=== PATIENT | male | born 1970 | race Caucasian/White ===

== ENCOUNTER 2017-06-07 07:25 | Inpatient (IN) | payer BC, MEDICARE ==
[~2017-06-07] VITALS: Ht 170.2 cm; Wt 127.7 kg
[2017-06-07] MEDS ORDERED: BOTO200I IJ (07:35)
[2017-06-07] MEDS ORDERED: DOXA1TAB72 PO (07:35)
[2017-06-07] MEDS ORDERED: ATEN50TA2 PO (07:35)
[2017-06-07] MEDS ORDERED: NAPR500T3 PO (07:35)
[2017-06-07] MEDS ORDERED: SIMV80TA PO (07:35)
[2017-06-07] MEDS ORDERED: BUPR15TA PO (07:35)
[2017-06-07] MEDS ORDERED: SERT50TA PO (07:35)
[2017-06-07] MEDS ORDERED: PRIL20CA9 PO (07:35)
[2017-06-07] MEDS ORDERED: SILD25TA GT (07:35)
[2017-06-07 08:33] LABS: MEAN CORPUSCULAR HEMOGLOBIN 31.4 pg (27.0-33.0); MEAN CORPUSCULAR HGB CONC 35.4 g/dl (32.0-36.5); MEAN CORPUSCULAR VOLUME 88.7 fl (80.0-96.0); WHITE BLOOD COUNT 5.7 K/mm3 (4.0-10.0)
[2017-06-07 08:44] LABS: METHADONE URINE NEGATIVE (NEGATIVE)
[2017-06-07 08:55] LABS: ALBUMIN/GLOBULIN RATIO 1.43 (1.00-1.93); ALKALINE PHOSPHATASE 116 U/L (45-117); ALT/SGPT 26 U/L (12-78); ANION GAP 8 MEQ/L (8-16); AST/SGOT 14 U/L (15-37); BILIRUBIN,DIRECT 0.2 MG/DL (0.0-0.2); BILIRUBIN,TOTAL 0.6 MG/DL (0.2-1.0); BLOOD UREA NITROGEN 11 MG/DL (7-18); CALCIUM LEVEL 8.5 MG/DL (8.5-10.1); CARBON DIOXIDE LEVEL 25 MEQ/L (21-32); CHLORIDE LEVEL 106 MEQ/L (98-107); CREATININE FOR GFR 0.99 MG/DL (0.70-1.30); GLOMERULAR FILTRATION RATE > 60.0 (>60); GLUCOSE, FASTING 103 MG/DL (70-105); POTASSIUM SERUM 3.6 MEQ/L (3.5-5.1); SODIUM LEVEL 139 MEQ/L (136-145); TOTAL PROTEIN 6.8 GM/DL (6.4-8.2)
[2017-06-07] MEDS ORDERED: VIAG100T PO (10:14)
[2017-06-07] MEDS ORDERED: BUPR75TA5 PO (10:14)
[2017-06-07] MEDS ORDERED: CYCL10TA PO (10:19)
[2017-06-07] MEDS ORDERED: MOM 30ML SUSPENSION UDC PO PRN (13:30)
[2017-06-07] MEDS ORDERED: ACETAMINOPHEN TAB 650MG DOSE (2X325MG) PO PRN (13:30)
[2017-06-07] MEDS ORDERED: MAALOX 30 ML SUSP *UDC PO PRN (13:30)
[2017-06-07] MEDS ORDERED: traZODone 50 MG TAB PO PRN (13:30)
[2017-06-07 18:00] VITALS: BP 154/79
[2017-06-07] MEDS: buPROPion 75 MG TAB PO SCH (20:51)
[2017-06-07] MEDS: SIMVASTATIN 40 MG TAB PO SCH (20:51)
[2017-06-07] MEDS: DOXAZOSIN MESYLATE 4 MG TAB PO SCH (20:53)
[2017-06-08 06:00] VITALS: BP 119/67
[2017-06-08] MEDS: OMEPRAZOLE 20 MG CAP PO SCH (08:22)
[2017-06-08] MEDS: NAPROXEN 250 MG TAB PO PRN (08:23)
[2017-06-08] MEDS: SERTRALINE 100 MG TAB PO SCH (08:23)
[2017-06-08] MEDS: ATENOLOL 50 MG TAB PO SCH (08:23)
[2017-06-08] MEDS: buPROPion 75 MG TAB PO SCH ×2 (08:23→19:57)
[2017-06-08 08:43] VITALS: BP_SYST 137; BP_SYST 153; BP_DIAS 88; BP_DIAS 90
[2017-06-08 08:44] VITALS: BP 147/86
[2017-06-08] MEDS ORDERED: buPROPion 75 MG TAB PO SCH (09:00)
[2017-06-08] MEDS ORDERED: SERTRALINE HCL 50 MG TAB PO SCH (09:00)
[2017-06-08 09:46] VITALS: BP 142/93
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
[2017-06-08 18:00] VITALS: BP 144/77
[2017-06-08] MEDS: SIMVASTATIN 40 MG TAB PO SCH (19:57)
[2017-06-08] MEDS: DOXAZOSIN MESYLATE 4 MG TAB PO SCH (19:58)
--- NOTE | 2017-06-09 01:22 | HPE ---
DATE OF ADMISSION: 06/07/2017 HISTORY OF PRESENT ILLNESS: Please refer to psychiatric history and evaluation for further details on this admission. This examination and history is intended for medical issues, which may need treatment, followup or consult on this 47-year-old male. ALLERGIES: No known allergies. PRIMARY CARE PROVIDER: [facility]. SOCIAL HISTORY: He is . Ethyl alcohol (EtOH): Drinks once a month. Smokes none. Recreational drug use: Marijuana. PAST MEDICAL HISTORY: 1. Hypertension. 2. Gastroesophageal reflux disease (GERD). 3. Irritable bowel syndrome (IBS). 4. Migraines. PAST SURGICAL HISTORY: Negative. HOME MEDICATIONS: - atenolol 50 mg by mouth daily - bupropion 150 mg by mouth daily - cyclobenzaprine 10 mg by mouth three times a day as needed - doxazosin 4 mg by mouth nightly - naproxen 500 mg by mouth as needed for back pain - omeprazole 20 mg by mouth daily - sertraline 50 mg by mouth daily - Viagra 100 mg by mouth as needed - simvastatin 80 mg by mouth nightly - Botox injections every 3 months LABORATORY STUDIES: WBC 5.7, hemoglobin 14.2, hematocrit 41.2, platelets 137. Electrolytes were normal. BUN and creatinine were 11 and 0.99. Urine was positive for cannabinoids. REVIEW OF SYSTEMS: 10-system review was done. He had no current complaints. History of migraines was stable. History of GERD was stable. IBS, he had no current diarrhea. No abdominal pain. OBJECTIVE: 47-year-old cooperative male in no acute distress. Height 67 inches, weight 124.5 kg, body mass index (BMI) 43. Blood pressure 123/66, pulse 64, respirations 18, temperature 97.8. Patient is alert and oriented times three. Pupils equal and react to light. Extraocular muscles intact. Cornea and sclerae clear. Conjunctivae were normal. No facial asymmetry. Pharynx, tongue and gums pink and moist. Tongue is midline. Neck is supple without lymphadenopathy. No thyromegaly, no goiter. Carotid 2+ without bruit. Chest clear to auscultation without wheeze or retraction. Heart is regular. Abdomen is benign. Bowel sounds positive. Genitourinary/rectal: Not done. Extremities: No cyanosis, clubbing or edema. Peripheral pulses equal and palpable bilaterally. Skin is warm and dry. IMPRESSION/PLAN: 1. Hypertension, stable. 2. Gastroesophageal reflux disease (GERD), stable. 3. Irritable bowel syndrome (IBS), stable. 4. Migraines, stable. Continue current medications as prescribed by the clinic. 5. Psychiatric plan per psychiatry.
--- NOTE | 2017-06-09 02:38 | IPN ---
DATE OF SERVICE: 06/08/2017 The patient today states that he is feeling very depressed and hopeless and helpless. He did say that he slept better. He is denying suicidal ideations. MENTAL STATUS EXAMINATION: He is alert and oriented times three. Eye contact is fairly good. Psychomotor activity is decreased. He is verbally spontaneous. There is no formal thought disorder noted. Patient's mood is depressed. Affect is full range and appropriate. He is not psychotic, suicidal, homicidal. Concentration and memory good. Insight and judgment is fair. DIAGNOSES: 1. Major depressive disorder. 2. Posttraumatic stress disorder. 3. Panic disorder. TREATMENT PLAN: At this point, the patient continues to be very depressed. We have just increased his Zoloft and his Wellbutrin and we will await further clinical response from this medication.
[2017-06-09 06:47] VITALS: BP 141/79
[2017-06-09] MEDS: buPROPion 75 MG TAB PO SCH ×2 (08:15→20:39)
[2017-06-09] MEDS: ATENOLOL 50 MG TAB PO SCH (08:15)
[2017-06-09] MEDS: SERTRALINE 100 MG TAB PO SCH (08:15)
[2017-06-09] MEDS: OMEPRAZOLE 20 MG CAP PO SCH (08:15)
[2017-06-09] MEDS ORDERED: ALBUTEROL 90 MCG/ACT 8GM HFA INHALER INH PRN (10:00)
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
[2017-06-09] MEDS ORDERED: hydrOXYzine 25 MG TAB PO PRN (13:30)
[2017-06-09 18:00] VITALS: BP 136/76
[2017-06-09] MEDS: SIMVASTATIN 40 MG TAB PO SCH (20:39)
[2017-06-09] MEDS: DOXAZOSIN MESYLATE 4 MG TAB PO SCH (20:40)
[2017-06-10 06:32] VITALS: BP 122/88
[2017-06-10] MEDS: ATENOLOL 50 MG TAB PO SCH (08:21)
[2017-06-10] MEDS: SERTRALINE 100 MG TAB PO SCH (08:21)
[2017-06-10] MEDS: OMEPRAZOLE 20 MG CAP PO SCH (08:21)
[2017-06-10] MEDS: buPROPion 75 MG TAB PO SCH ×2 (08:22→12:01)
[2017-06-10] MEDS: NAPROXEN 250 MG TAB PO PRN ×2 (08:22→18:53)
--- NOTE | 2017-06-10 13:23 | MHIPNPDOC ---
[facility] Progress Note Progress Note DATE OF SERVICE: 06/10/17 HISTORY: Day 4 of admission for worsening depression and SI. VITAL SIGNS: See below. NEW TEST RESULTS: na. CURRENT MEDICATIONS: See below. MENTAL STATUS EXAMINATION: Patient is a 47-year old male, who is wearing a T-Shirt and PJ bottoms, heavy set build, good eye contact, drawing on a piece of paper. Speech: Is clear and spontaneous. Language skills are good. Thought processes including: goal directed. Thought content: linear. Abstract reasoning, and computation: good. Description of associations: good. Description of abnormal or psychotic thoughts: no psychotic symptoms or thoughts expressed or observed. Pt reports SI has stopped. Judgment: good Insight: good, Orientation: well oriented in all spheres. Recent and remote memory: intact Attention span and concentration: good Fund of knowledge: full. Mood: anxious. Affect: anxious DIAGNOSES: Major depressive disorder, recurrent, severe without psychotic symptoms. Posttraumatic stress disorder. Panic disorder. Cannabis use/dependence ASSESSMENT:met with pt for 1:1, he reports poor sleep last night. Upon investigation his medication, his bupropion is scheduled in a.m. and hs. Of course he is having difficulty with sleep when dosing Wellbutrin that late in the day. Med changed to 0900 and Noon. Pt is satisfied with this explanation for insomnia. Pt is using strategies to manage his stress when the unit is noisy or crowded. He will find a quiet place to relax. He uses deep breathing. He attended meditation group today to learn more skills in that area. He is social at times and at other times keeps to self. He is not a behavior challenge on the unit. He seems to get along well with peers. Several patients have a negative impact on him and when they are present he has to remove himself to keep control. Олег is attending to hygiene, he eats at all meals. He attends groups. He is taking medication as prescribed. He has not made use of the Vistaril prn. MANAGEMENT PLAN: Will continue to monitor for sleep/insomnia. continue close observation and attendance at groups. TIME SPENT: 25 minutes. Vital Signs Vital Signs Date Time Temp Pulse Resp B/P (MAP) Pulse Ox O2 Delivery O2 Flow Rate FiO2 06/10/17 08:21 88 124/76 06/10/17 06:32 97.2 18 06/08/17 08:43 99 Room Air Current Medications Current Medications Acetaminophen (Tylenol Tab) 650 mg Q6HP PRN PO HEADACHE or DISCOMFORT Last administered on 06/08/17 15:12; Start 06/07/17 at 13:30; Stop 07/07/17 at 13:29 Al Hydrox/Mg Hydrox/Simethicone (Mylanta) 30 ml Q4HP PRN PO HEARTBURN/ INDIGESTION; Start 06/07/17 at 13:30; Stop 07/07/17 at 13:29 Albuterol Sulfate (Proventil, Ventolin Hfa) 2 puff Q4HP PRN INH SHORTNESS OF BREATH Last administered on 06/10/17 09:08; Start 06/09/17 at 10:00; Stop at 09:59 Atenolol (Tenormin) 50 mg DAILY PO Last administered on 06/10/17 08:21; Start 06/08/17 at 09:00; Stop 07/08/17 at 08:59 Bupropion HCl (Wellbutrin) 150 mg BID PO Last administered on 06/10/17 08:22; Start 06/07/17 at 21:00; Stop 06/10/17 at 09:19; Status DC Bupropion HCl (Wellbutrin) 150 mg BID@0900,1200 PO Last administered on 12:01; Start 06/10/17 at 12:00; Stop 07/10/17 at 11:59 Bupropion HCl (Wellbutrin) 150 mg DAILY PO ; Start 06/08/17 at 09:00; Stop at 09:00; Status DC Doxazosin Mesylate (Cardura) 4 mg QHS PO Last administered on 06/09/17 20:40; Start 06/07/17 at 21:00; Stop 07/07/17 at 20:59 Home Med (Med Rec Complete!) ASDIRECTED XX ; Start 06/07/17 at 10:30; Stop at 10:30; Status DC Hydroxyzine HCl (Atarax) 25 mg Q6HP PRN PO ANXIETY; Start 06/09/17 at 13:30; Stop 07/09/17 at 13:29 Magnesium Hydroxide (Milk Of Magnesia) 30 ml DAILYPRN PRN PO CONSTIPATION; Start 06/07/17 at 13:30; Stop 07/07/17 at 13:29 Naproxen (Naprosyn) 500 mg BID PRN PO Pain Last administered on 06/10/17 08:22 ; Start 06/07/17 at 13:45; Stop 07/07/17 at 13:44 Omeprazole (PriLOSEC) 20 mg DAILY PO Last administered on 06/10/17 08:21; Start 06/08/17 at 09:00; Stop 07/08/17 at 08:59 Sertraline HCl (Zoloft) 50 mg DAILY PO ; Start 06/08/17 at 09:00; Stop 06/08/17 at 09:00; Status DC Sertraline HCl (Zoloft) 100 mg QAM PO Last administered on 06/10/17 08:21; Start 06/08/17 at 09:00; Stop 07/08/17 at 08:59 Simvastatin (Zocor) 80 mg QHS PO Last administered on 06/09/17 20:39; Start at 21:00; Stop 07/07/17 at 20:59 Trazodone HCl (Desyrel) 50 mg QHSP PRN PO INSOMNIA; Start 06/07/17 at 13:30; Stop 07/07/17 at 13:29 Allergies Coded Allergies: No Known Allergies (Unverified , 06/07/17) Santa Avelar Jun 10, 2017 13:23
[2017-06-10 18:00] VITALS: BP 140/72
[2017-06-10] MEDS: SIMVASTATIN 40 MG TAB PO SCH (20:14)
[2017-06-10] MEDS: DOXAZOSIN MESYLATE 4 MG TAB PO SCH (20:14)
[2017-06-11 07:00] VITALS: BP 133/66
[2017-06-11] MEDS: buPROPion 75 MG TAB PO SCH (08:26)
[2017-06-11] MEDS: ATENOLOL 50 MG TAB PO SCH (08:26)
[2017-06-11] MEDS: OMEPRAZOLE 20 MG CAP PO SCH (08:27)
[2017-06-11] MEDS: SERTRALINE 100 MG TAB PO SCH (08:27)
[2017-06-11] MEDS ORDERED: buPROPion 75 MG TAB PO ONE (13:15)
--- NOTE | 2017-06-11 13:32 | MHIPNPDOC ---
[facility] Progress Note Progress Note DATE OF SERVICE: 06/11/17 HISTORY: Day 5 of admission for worsening depression and SI. VITAL SIGNS: See below. NEW TEST RESULTS: na. CURRENT MEDICATIONS: See below. MENTAL STATUS EXAMINATION: Patient is a 47-year old male, who is wearing a T-Shirt and PJ bottoms, heavy set build, good eye contact, sitting at a table with a group of peers. Speech: Is clear and spontaneous. Language skills are good. Thought processes including: goal directed. Thought content: linear. Abstract reasoning, and computation: good. Description of associations: good. Description of abnormal or psychotic thoughts: no psychotic symptoms or thoughts expressed or observed. Pt reports SI has stopped. Judgment: good Insight: good, Orientation: well oriented in all spheres. Recent and remote memory: intact Attention span and concentration: good Fund of knowledge: full. Mood: anxious. Affect: anxious DIAGNOSES: Major depressive disorder, recurrent, severe without psychotic symptoms. Posttraumatic stress disorder. Panic disorder. Cannabis dependence ASSESSMENT: Олег reports an adequate night of sleeping but does not like the feeling he has in the a.m. after a night of trazodone. He also expressed he feels the mid day dose of Wellbutrin is "too strong". Vocational Rehabilitation Consultant will lower dose to 75 mg at noon. So he will receive 75 mg - 2 tabs in a.m. and 1 tab po at noon. He is satisfied with this adjustment. Олег continues to attend groups. he is responding appropriately to stress. he states he has had moments of true happiness while here and he is also able to feel other motions again. this feels good to him. MANAGEMENT PLAN: Family meeting scheduled by [facility] for tomorrow at 3 p.m. Son is attending, GF was called but no answer and mailbox full. Will plan to discharge following the meeting if pt feels comfortable and safe. Follow up will be handled by the [facility] for med mgt and therapy. Pt will need to obtain his therapy services from the same agency doing the prescribing for him. TIME SPENT: 15 minutes. Vital Signs Vital Signs Date Time Temp Pulse Resp B/P (MAP) Pulse Ox O2 Delivery O2 Flow Rate FiO2 06/11/17 08:26 65 144/82 06/11/17 07:00 98.1 18 06/08/17 08:43 99 Room Air Current Medications Current Medications Acetaminophen (Tylenol Tab) 650 mg Q6HP PRN PO HEADACHE or DISCOMFORT Last administered on 06/08/17 15:12; Start 06/07/17 at 13:30; Stop 07/07/17 at 13:29 Al Hydrox/Mg Hydrox/Simethicone (Mylanta) 30 ml Q4HP PRN PO HEARTBURN/ INDIGESTION; Start 06/07/17 at 13:30; Stop 07/07/17 at 13:29 Albuterol Sulfate (Proventil, Ventolin Hfa) 2 puff Q4HP PRN INH SHORTNESS OF BREATH Last administered on 06/10/17 09:08; Start 06/09/17 at 10:00; Stop at 09:59 Atenolol (Tenormin) 50 mg DAILY PO Last administered on 06/11/17 08:26; Start 06/08/17 at 09:00; Stop 07/08/17 at 08:59 Bupropion HCl (Wellbutrin) 75 mg DAILY@1200 PO ; Start 06/12/17 at 12:00; Stop 07/12/17 at 11:59 Bupropion HCl (Wellbutrin) 150 mg BID PO Last administered on 06/10/17 08:22; Start 06/07/17 at 21:00; Stop 06/10/17 at 09:19; Status DC Bupropion HCl (Wellbutrin) 150 mg BID@0900,1200 PO Last administered on 08:26; Start 06/10/17 at 12:00; Stop 06/11/17 at 13:09; Status DC Bupropion HCl (Wellbutrin) 150 mg DAILY PO ; Start 06/12/17 at 09:00; Stop 07/12 at 08:59 Bupropion HCl (Wellbutrin) 150 mg DAILY PO ; Start 06/08/17 at 09:00; Stop at 09:00; Status DC Doxazosin Mesylate (Cardura) 4 mg QHS PO Last administered on 06/10/17 20:14; Start 06/07/17 at 21:00; Stop 07/07/17 at 20:59 Home Med (Med Rec Complete!) ASDIRECTED XX ; Start 06/07/17 at 10:30; Stop at 10:30; Status DC Hydroxyzine HCl (Atarax) 25 mg Q6HP PRN PO ANXIETY; Start 06/09/17 at 13:30; Stop 07/09/17 at 13:29 Magnesium Hydroxide (Milk Of Magnesia) 30 ml DAILYPRN PRN PO CONSTIPATION; Start 06/07/17 at 13:30; Stop 07/07/17 at 13:29 Naproxen (Naprosyn) 500 mg BID PRN PO Pain Last administered on 06/10/17 18:53 ; Start 06/07/17 at 13:45; Stop 07/07/17 at 13:44 Omeprazole (PriLOSEC) 20 mg DAILY PO Last administered on 06/11/17 08:27; Start 06/08/17 at 09:00; Stop 07/08/17 at 08:59 Sertraline HCl (Zoloft) 50 mg DAILY PO ; Start 06/08/17 at 09:00; Stop 06/08/17 at 09:00; Status DC Sertraline HCl (Zoloft) 100 mg QAM PO Last administered on 06/11/17 08:27; Start 06/08/17 at 09:00; Stop 07/08/17 at 08:59 Simvastatin (Zocor) 80 mg QHS PO Last administered on 06/10/17 20:14; Start at 21:00; Stop 07/07/17 at 20:59 Trazodone HCl (Desyrel) 50 mg QHSP PRN PO INSOMNIA Last administered on 22:42; Start 06/07/17 at 13:30; Stop 07/07/17 at 13:29 Allergies Coded Allergies: No Known Allergies (Unverified , 06/07/17) Santa Avelar Jun 11, 2017 13:32
[2017-06-11 18:00] VITALS: BP 141/64
[2017-06-11] MEDS: NAPROXEN 250 MG TAB PO PRN (19:42)
[2017-06-11] MEDS: SIMVASTATIN 40 MG TAB PO SCH (20:56)
[2017-06-11] MEDS: DOXAZOSIN MESYLATE 4 MG TAB PO SCH (20:56)
[2017-06-12 06:58] VITALS: BP 126/67
[2017-06-12] MEDS: OMEPRAZOLE 20 MG CAP PO SCH (08:05)
[2017-06-12] MEDS: SERTRALINE 100 MG TAB PO SCH (08:05)
[2017-06-12 08:06] VITALS: BP 126/67
[2017-06-12] MEDS: ATENOLOL 50 MG TAB PO SCH (08:06)
[2017-06-12] MEDS: NAPROXEN 250 MG TAB PO PRN (08:08)
[2017-06-12] MEDS ORDERED: buPROPion 75 MG TAB PO SCH ×2 (09:00→12:00)
[2017-06-12] MEDS ORDERED: SERT-138 PO (10:59)
[2017-06-12] MEDS ORDERED: TRAZO50TA PO (12:29)
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
== END 2017-06-12 14:20 | disposition home or self-care (01) | DRG 885 ==
LOC: M ED 07:25 → M PSY 11:34
PROVIDERS: ADMIT Psychiatry & Neurology Psychiatry; ATTEND Psychiatry & Neurology Psychiatry
DX: F33.2 Major depressive disorder, recurrent severe without psychotic features (principal); R45.851 Suicidal ideations; F43.10 Post-traumatic stress disorder, unspecified; F41.0 Panic disorder [episodic paroxysmal anxiety]; F12.20 Cannabis dependence, uncomplicated; Z79.899 Other long term (current) drug therapy; I10 Essential (primary) hypertension; K21.9 Gastro-esophageal reflux disease without esophagitis; G43.909 Migraine, unspecified, not intractable, without status migrainosus; K58.9 Irritable bowel syndrome, unspecified

== ENCOUNTER 2023-07-15 02:52 | Emergency (ER) | payer OTHER ==
[~2023-07-15] VITALS: Ht 170.2 cm; Wt 129.5 kg
[~2023-07-15 02:52] MED LIST: ATEN50TA2 PO; BOTO200I IJ; BUPR10TASR PO; BUPR15TA PO; BUPR75TA5 PO; CYCL-707 PO; DOXA1TAB67 PO; FLOM0.4C39 PO; NAPR-885 PO; PRIL20CA9 PO; PRIL20TA2 PO; SERT-138 PO; SERT-141 PO; SILD25TA GT; SIMV80TA13 PO; TRAZ1TAB10 PO; VIAG100T PO; ZOCO80TA PO; ZOLO100T PO
[2023-07-15 02:55] VITALS: BP 141/87; TEMP 97.9; O2SAT 96
== END 2023-07-15 03:19 | disposition left against medical advice (07) ==
LOC: M ED 02:52
DX: G43.909 Migraine, unspecified, not intractable, without status migrainosus (principal); K08.89 Other specified disorders of teeth and supporting structures; Z53.21 Procedure and treatment not carried out due to patient leaving prior to being seen by health care provider

== ENCOUNTER 2023-09-22 18:40 | Emergency (ER) | payer MEDICARE, OTHER ==
[~2023-09-22] VITALS: Ht 170.2 cm; Wt 126.1 kg
[2023-09-22] MEDS ORDERED: ONDANSETRON 4MG 2ML VIAL IV ONE (19:30)
[2023-09-22 20:04] LABS: VENOUS BASE EXCESS -1.7 (-2.0-2.0); VENOUS HCO3 22.7 MMOL/L (23.0-27.0); VENOUS O2 SATURATION 93.3 % (60.0-80.0); VENOUS PARTIAL PRESSURE CO2 37.6 mmHg (38.0-50.0); VENOUS PARTIAL PRESSURE O2 63.5 mmHg (30.0-50.0); VENOUS PH 7.398 UNITS (7.330-7.430); VENOUS TOTAL CO2 23.8 MMOL/L (24.0-28.0)
[2023-09-22 20:13] LABS: BASO # 0.1 10^3/uL (0.0-0.2); BASO % 0.4 % (0.0-1.0); EOS % 0.2 % (0.0-3.0); HEMATOCRIT 45.2 % (42.0-52.0); HEMOGLOBIN 15.6 g/dl (13.5-17.5); LYMPH # 1.6 10^3/uL (1.5-5.0); LYMPH % 9.3 % (24.0-44.0); MEAN CORPUSCULAR HEMOGLOBIN 29.8 pg (27.0-33.0); MEAN CORPUSCULAR HGB CONC 34.5 g/dl (32.0-36.5); MEAN CORPUSCULAR VOLUME 86.4 fl (80.0-96.0); MONO % 11.9 % (2.0-8.0); NEUTROPHILS # 13.4 10^3/uL (1.5-8.5); NEUTROPHILS % 77.2 % (36.0-66.0); PLATELET COUNT, AUTOMATED 189 10^3/uL (150-450); RED BLOOD COUNT 5.23 10^6/uL (4.30-6.10); WHITE BLOOD COUNT 17.3 10^3/uL (4.0-10.0)
[2023-09-22 20:24] LABS: INR 1.05; PROTHROMBIN TIME 13.4 SECONDS (12.5-14.5)
[2023-09-22 20:38] LABS: MONO # 2.1 10^3/uL (0.0-0.8)
[2023-09-22] MEDS ORDERED: NS 1,000 ML IV ONE (21:40)
[2023-09-22 22:01] LABS: AMYLASE 49 U/L (30-118); C REACTIVE PROTEIN QUANTITATIV < 0.40 MG/DL (<1.0)
[2023-09-22 22:02] LABS: ALBUMIN 4.3 G/DL (3.2-5.2); ALKALINE PHOSPHATASE 100 U/L (46-116); ALT/SGPT 23 U/L (7.0-40); AST/SGOT 23 U/L (<34); BILIRUBIN,DIRECT 0.2 MG/DL (<0.4); BILIRUBIN,TOTAL 0.6 MG/DL (0.3-1.2); BLOOD UREA NITROGEN 16 MG/DL (9-23); CALCIUM LEVEL 9.3 MG/DL (8.5-10.1); CARBON DIOXIDE LEVEL 23 MMOL/L (20-31); CHLORIDE LEVEL 105 MMOL/L (98-107); CK-MB VALUE MASS 2.4 NG/ML (<3.6); GLOMERULAR FILTRATION RATE > 60.0 (>56); GLUCOSE, FASTING 99 MG/DL (60-100); SODIUM LEVEL 137 MMOL/L (136-145); TOTAL PROTEIN 7.5 G/DL (5.7-8.2)
[2023-09-22 22:03] LABS: CPK CREATINE PHOSPHOKINASE 323 U/L (46-171); MB/CK RELATIVE INDEX 0.74 (< OR =4)
[2023-09-22 22:13] LABS: PROCALCITONIN <0.04 ng/ml
[2023-09-22 22:34] LABS: APPEARANCE, URINE HAZY (CLEAR); BACTERIA, URINE AUTO NEGATIVE (NEGATIVE); BILIRUBIN, URINE AUTO NEGATIVE (NEGATIVE); BLOOD, URINE BLOOD NEGATIVE (NEGATIVE); COLOR, URINE YELLOW (YELLOW); GLUCOSE, URINE (UA) AUTO NEGATIVE (NEGATIVE); KETONE, URINE AUTO NEGATIVE (NEGATIVE); LEUKOCYTE ESTERASE, URINE AUTO NEGATIVE (NEGATIVE); MUCUS, URINE SMALL (NEGATIVE); NITRITE, URINE AUTO NEGATIVE (NEGATIVE); PROTEIN, URINE AUTO NEGATIVE (NEGATIVE); RBC, URINE AUTO 1 /HPF (0-3); SPECIFIC GRAVITY URINE AUTO 1.013 (1.002-1.035); SQUAMOUS EPITHELIAL CELL UR AU 0 /HPF (0-6); URIC ACID CRYSTALS SMALL; UROBILINOGEN, URINE AUTO 0.2 mg/dL (0.0-2.0); WBC, URINE AUTO 1 /HPF (0-3)
[2023-09-22] MEDS ORDERED: ISOVUE-370 76% 100ML VIAL As Ordered ONE (22:36)
[2023-09-22 23:19] LABS: CK-MB VALUE MASS 2.6 NG/ML (<3.6)
[2023-09-22 23:38] LABS: MB/CK RELATIVE INDEX 0.82 (< OR =4)
[2023-09-23] MEDS ORDERED: ONDA4TAB6 PO (02:02)
[2023-09-23 02:24] VITALS: BP 143/84; TEMP 98.2; O2SAT 96
== END 2023-09-23 02:32 | disposition home or self-care (01) ==
LOC: M ED 18:40
DX: R11.2 Nausea with vomiting, unspecified (principal); R10.9 Unspecified abdominal pain; R53.83 Other fatigue; M79.89 Other specified soft tissue disorders; I10 Essential (primary) hypertension; K21.9 Gastro-esophageal reflux disease without esophagitis; F32.A Depression, unspecified; E03.9 Hypothyroidism, unspecified; F17.210 Nicotine dependence, cigarettes, uncomplicated; Z79.899 Other long term (current) drug therapy
CPT/HCPCS: 70450; 71045; 73130; 74177; 80047; 80048; 80076; 81001; 82150; 82550; 82553; 82803; 83605; 83690; 84145; 84484; 85025; 85610; 85730; 86140; 86850; 86900; 86901; 87040; 87077; 87086; 87186; 93005; 93041; 94760; 96361; 96374; 99285; J2405; Q9967

== ENCOUNTER → 2023-11-07 | Outpatient (CLI) | payer OTHER ==
[~2023-11-07] MED LIST changes: +ONDA4TAB6 PO; +PROHANCE 279.3MG/ML 15ML VIAL As Ordered ONE; +PROHANCE 279.3MG/ML 5ML VIAL As Ordered ONE
== END ==
LOC: M RAD 06:56
PROVIDERS: ATTEND Nurse Practitioner Family
DX: R93.422 Abnormal radiologic findings on diagnostic imaging of left kidney (principal); N28.1 Cyst of kidney, acquired
CPT/HCPCS: 74183; 76775; A9576

== ENCOUNTER 2023-11-13 09:00 | Observation (INO) | payer OTHER ==
[~2023-11-13] VITALS: Ht 170.2 cm; Wt 126.6 kg
[~2023-11-13 09:00] MED LIST changes: -PROHANCE 279.3MG/ML 15ML VIAL As Ordered ONE; -PROHANCE 279.3MG/ML 5ML VIAL As Ordered ONE
[2023-11-13 09:34] LABS: IONIZED CALCIUM 4.6 MG/DL (4.5-5.3)
[2023-11-13 09:41] LABS: BASO # 0.1 10^3/uL (0.0-0.2); BASO % 0.7 % (0.0-1.0); EOS # 0.6 10^3/uL (0.0-0.5); EOS % 7.8 % (0.0-3.0); HEMOGLOBIN 14.9 g/dl (13.5-17.5); LYMPH # 1.9 10^3/uL (1.5-5.0); LYMPH % 24.9 % (24.0-44.0); MEAN CORPUSCULAR HEMOGLOBIN 30.3 pg (27.0-33.0); MEAN CORPUSCULAR HGB CONC 33.9 g/dl (32.0-36.5); MEAN CORPUSCULAR VOLUME 89.6 fl (80.0-96.0); MONO # 0.6 10^3/uL (0.0-0.8); MONO % 7.9 % (2.0-8.0); NEUTROPHILS # 4.3 10^3/uL (1.5-8.5); NEUTROPHILS % 57.5 % (36.0-66.0); PLATELET COUNT, AUTOMATED 153 10^3/uL (150-450); RED BLOOD COUNT 4.91 10^6/uL (4.30-6.10); WHITE BLOOD COUNT 7.4 10^3/uL (4.0-10.0)
[2023-11-13 10:05] LABS: AMPHETAMINES LEVEL URINE NEGATIVE (NEGATIVE)
[2023-11-13 10:06] LABS: BARBITURATES URINE NEGATIVE (NEGATIVE); BENZODIAZEPINES URINE NEGATIVE (NEGATIVE); COCAINE METABOLITE URINE NEGATIVE (NEGATIVE); METHADONE URINE NEGATIVE (NEGATIVE); OPIATES URINE NEGATIVE (NEGATIVE); PHENCYCLIDINE URINE NEGATIVE (NEGATIVE)
[2023-11-13 10:07] LABS: ETHYL ALCOHOL (ETHANOL) 0.003 % (0.000-0.010)
[2023-11-13 10:09] LABS: ALBUMIN 3.9 G/DL (3.2-5.2); ALKALINE PHOSPHATASE 98 U/L (46-116); ALT/SGPT 25 U/L (7.0-40); AST/SGOT 15 U/L (<34); BILIRUBIN,DIRECT 0.2 MG/DL (<0.4); BILIRUBIN,TOTAL 0.6 MG/DL (0.3-1.2); BLOOD UREA NITROGEN 9 MG/DL (9-23); CARBON DIOXIDE LEVEL 25 MMOL/L (20-31); CHLORIDE LEVEL 108 MMOL/L (98-107); CREATININE FOR GFR 0.88 MG/DL (0.70-1.30); GLOMERULAR FILTRATION RATE > 60.0 (>56); GLUCOSE, FASTING 153 MG/DL (60-100); MAGNESIUM LEVEL 2.1 MG/DL (1.8-2.4); POTASSIUM SERUM 4.2 MMOL/L (3.5-5.1); SODIUM LEVEL 141 MMOL/L (136-145); TOTAL PROTEIN 6.9 G/DL (5.7-8.2)
[2023-11-13 10:31] LABS: CANNABINOIDS URINE POSITIVE (NEGATIVE)
[2023-11-13] MEDS ORDERED: LORazepam 2 MG/ML 1ML VIAL As Ordered ONE (11:45)
[2023-11-13] MEDS ORDERED: levETIRAcetam INJection 1,500 MG in D5W 100 ML IV ONE (11:50)
[2023-11-13] MEDS ORDERED: MED REC IN PROGRESS XX SCH (13:05)
[2023-11-13] MEDS ORDERED: OMEP-173 PO (13:10)
[2023-11-13] MEDS ORDERED: ATEN50TA2 PO (13:10)
[2023-11-13] MEDS ORDERED: MOM 30ML SUSPENSION UDC PO PRN (13:45)
[2023-11-13] MEDS ORDERED: ACETAMINOPHEN TAB 650MG DOSE (2X325MG) PO PRN (13:45)
[2023-11-13] MEDS ORDERED: ACETAMINOPHEN 325 MG TAB PO ONE (13:50)
[2023-11-13] MEDS ORDERED: SIMV40TA20 PO (15:08)
[2023-11-13] MEDS ORDERED: HOME MED LIST COMPLETE! XX SCH (15:25)
[2023-11-13 15:40] VITALS: BP 153/85; TEMP 98.1; O2SAT 98
[2023-11-13] MEDS ORDERED: LORazepam 2 MG/ML 1ML VIAL IV PRN (15:40)
[2023-11-13] MEDS ORDERED: LORazepam 1 MG TAB PO ONE (19:00)
[2023-11-13] MEDS ORDERED: SIMVASTATIN 40 MG TAB PO SCH (21:00)
[2023-11-13] MEDS ORDERED: DOXAZOSIN MESYLATE 4 MG TAB PO SCH (21:00)
[2023-11-13] MEDS: levETIRAcetam 250MG TABLET (KEPPRA) PO SCH (21:18)
[2023-11-13] MEDS: HEPARIN SOD (PORCINE) 5000UNITS/ML 1ML VIAL/SYRINGE SC SCH (21:19)
[2023-11-13 21:31] VITALS: BP 146/67
[2023-11-13] MEDS: DOCUSATE SODIUM 100MG CAPSULE PO SCH (21:31)
[2023-11-13 23:49] VITALS: BP 148/75; TEMP 97.7; O2SAT 93
[2023-11-14 04:00] VITALS: BP 143/67; TEMP 97.1; O2SAT 94
[2023-11-14] MEDS: HEPARIN SOD (PORCINE) 5000UNITS/ML 1ML VIAL/SYRINGE SC SCH (07:04)
[2023-11-14 07:10] LABS: HEMATOCRIT 41.3 % (42.0-52.0); HEMOGLOBIN 13.8 g/dl (13.5-17.5); MEAN CORPUSCULAR HEMOGLOBIN 29.8 pg (27.0-33.0); MEAN CORPUSCULAR HGB CONC 33.4 g/dl (32.0-36.5); MEAN CORPUSCULAR VOLUME 89.2 fl (80.0-96.0); PLATELET COUNT, AUTOMATED 150 10^3/uL (150-450); RED BLOOD COUNT 4.63 10^6/uL (4.30-6.10); WHITE BLOOD COUNT 8.7 10^3/uL (4.0-10.0)
[2023-11-14 07:30] LABS: BLOOD UREA NITROGEN 9 MG/DL (9-23); CALCIUM LEVEL 8.9 MG/DL (8.5-10.1); CARBON DIOXIDE LEVEL 27 MMOL/L (20-31); CHLORIDE LEVEL 106 MMOL/L (98-107); CREATININE FOR GFR 0.86 MG/DL (0.70-1.30); GLOMERULAR FILTRATION RATE > 60.0 (>56); GLUCOSE, FASTING 88 MG/DL (60-100); POTASSIUM SERUM 3.6 MMOL/L (3.5-5.1); SODIUM LEVEL 140 MMOL/L (136-145)
[2023-11-14 08:03] VITALS: BP 150/80; TEMP 97.8; O2SAT 97
[2023-11-14] MEDS: DOCUSATE SODIUM 100MG CAPSULE PO SCH (09:00)
[2023-11-14] MEDS ORDERED: atenoloL 50 MG TAB PO SCH (09:00)
[2023-11-14] MEDS ORDERED: SERTRALINE 100 MG TAB PO SCH (09:00)
[2023-11-14] MEDS ORDERED: OMEPRAZOLE 20MG CAP PO SCH (09:00)
[2023-11-14] MEDS ORDERED: KEPP250T5 PO (10:10)
[2023-11-14] MEDS ORDERED: ONDANSETRON 4MG ORAL DISINTEGRATING TAB SL PRN (10:10)
[2023-11-14] MEDS ORDERED: ZOLO100T PO (10:10)
[2023-11-14] MEDS: levETIRAcetam 250MG TABLET (KEPPRA) PO SCH (10:11)
[2023-11-14] MEDS ORDERED: ONDA4TAB6 SL (10:12)
[2023-11-14] MEDS ORDERED: LEVE750T5 PO (10:12)
== END 2023-11-14 12:08 | disposition home or self-care (01) ==
LOC: M ED 09:00 → EDBD 09:00 → M ED INP 09:01 → UNDOADMOB 13:44 → M ED INP 13:44 → ENRESERV 14:25 → M PCU 15:35
PROVIDERS: ADMIT Student in an Organized Health Care Education/Training Program; ATTEND Student in an Organized Health Care Education/Training Program
DX: R56.9 Unspecified convulsions (principal); E87.20 Acidosis, unspecified; F32.A Depression, unspecified; F43.10 Post-traumatic stress disorder, unspecified; G43.909 Migraine, unspecified, not intractable, without status migrainosus; K21.9 Gastro-esophageal reflux disease without esophagitis; I10 Essential (primary) hypertension; K58.0 Irritable bowel syndrome with diarrhea; Z79.899 Other long term (current) drug therapy
CPT/HCPCS: 36415; 70450; 70551; 71045; 72125; 80048; 80076; 80307; 82077; 82140; 82330; 83605; 83735; 85025; 85027; 87486; 87581; 87633; 87798; 93005; 93041; 94760; 95819; 96365; 96372; 97161; 99285; G0378; J1953

== ENCOUNTER → 2024-04-23 | Outpatient (CLI) | payer OTHER ==
[~2024-04-23] MED LIST changes: +KEPP250T5 PO; +LEVE750T5 PO; +OMEP-173 PO; +ONDA4TAB6 SL; +SIMV40TA20 PO
== END ==
LOC: M PLARAD 13:34
PROVIDERS: ATTEND Student in an Organized Health Care Education/Training Program
DX: G40.909 Epilepsy, unspecified, not intractable, without status epilepticus (principal)

== ENCOUNTER 2024-09-12 08:17 | Emergency (ER) | payer OTHER ==
[~2024-09-12] VITALS: Ht 170.2 cm; Wt 122.7 kg
[~2024-09-12 08:17] MED LIST changes: +ONDA-282 PO; +ONDA-282 SL; -ONDA4TAB6 PO; -ONDA4TAB6 SL
[2024-09-12] MEDS ORDERED: ISOVUE-370 76% 100ML VIAL As Ordered ONE (09:07)
[2024-09-12 09:13] LABS: BASO # 0.1 10^3/uL (0.0-0.2); BASO % 0.6 % (0.0-1.0); EOS # 0.4 10^3/uL (0.0-0.5); EOS % 4.4 % (0.0-3.0); HEMATOCRIT 46.9 % (42.0-52.0); HEMOGLOBIN 15.8 g/dl (13.5-17.5); LYMPH # 1.7 10^3/uL (1.5-5.0); MEAN CORPUSCULAR HEMOGLOBIN 30.1 pg (27.0-33.0); MEAN CORPUSCULAR HGB CONC 33.7 g/dl (32.0-36.5); MEAN CORPUSCULAR VOLUME 89.3 fl (80.0-96.0); MONO # 1.1 10^3/uL (0.0-0.8); NEUTROPHILS # 6.6 10^3/uL (1.5-8.5); NEUTROPHILS % 66.4 % (36.0-66.0); PLATELET COUNT, AUTOMATED 158 10^3/uL (150-450); RED BLOOD COUNT 5.25 10^6/uL (4.30-6.10); WHITE BLOOD COUNT 9.9 10^3/uL (4.0-10.0)
[2024-09-12 09:24] LABS: INR 1.07; PARTIAL THROMBOPLASTIN TIME 27.1 SECONDS (24.8-34.2); PROTHROMBIN TIME 13.6 SECONDS (12.5-14.5)
[2024-09-12 09:34] LABS: CK-MB VALUE MASS < 1.0 NG/ML (<3.6)
[2024-09-12 09:38] LABS: ALBUMIN 4.2 G/DL (3.2-5.2); ALKALINE PHOSPHATASE 127 U/L (46-116); ALT/SGPT 23 U/L (7.0-40); AST/SGOT 14 U/L (<34); BILIRUBIN,DIRECT 0.2 MG/DL (<0.4); BILIRUBIN,TOTAL 0.9 MG/DL (0.3-1.2); BLOOD UREA NITROGEN 12 MG/DL (9-23); CALCIUM LEVEL 9.9 MG/DL (8.5-10.1); CARBON DIOXIDE LEVEL 28 MMOL/L (20-31); CHLORIDE LEVEL 106 MMOL/L (98-107); CREATININE FOR GFR 0.88 MG/DL (0.70-1.30); GLOMERULAR FILTRATION RATE > 60.0 (>56); GLUCOSE, FASTING 123 MG/DL (60-100); SODIUM LEVEL 140 MMOL/L (136-145); TOTAL PROTEIN 7.6 G/DL (5.7-8.2)
[2024-09-12 09:39] LABS: CPK CREATINE PHOSPHOKINASE 133 U/L (46-171); MB/CK RELATIVE INDEX 0.75 (< OR =4)
[2024-09-12] MEDS: NS 500 ML IV ONE (10:05)
[2024-09-12 11:02] LABS: CK-MB VALUE MASS < 1.0 NG/ML (<3.6)
[2024-09-12 11:05] LABS: CPK CREATINE PHOSPHOKINASE 120 U/L (46-171); MB/CK RELATIVE INDEX 0.83 (< OR =4)
[2024-09-12] MEDS: diazePAM 2 MG TAB PO ONE (11:06)
[2024-09-12 13:20] VITALS: BP 164/92; TEMP 99.6; O2SAT 94
== END 2024-09-12 13:20 | disposition home or self-care (01) ==
LOC: M ED 08:17
DX: R42 Dizziness and giddiness (principal); R91.1 Solitary pulmonary nodule; B34.9 Viral infection, unspecified; I10 Essential (primary) hypertension; R56.9 Unspecified convulsions; F41.9 Anxiety disorder, unspecified; F32.A Depression, unspecified; F17.200 Nicotine dependence, unspecified, uncomplicated; Z79.899 Other long term (current) drug therapy
CPT/HCPCS: 70450; 70496; 70498; 70551; 71045; 71260; 74177; 80047; 80048; 80076; 80177; 82550; 82553; 83605; 84484; 85025; 85610; 85730; 87486; 87581; 87633; 87798; 93005; 93041; 94760; 96360; 99285; Q9967

== ENCOUNTER 2025-04-14 23:48 | Emergency (ER) | payer OTHER ==
[~2025-04-14] VITALS: Ht 170.2 cm; Wt 125.7 kg
[~2025-04-14 23:48] MED LIST changes: -FLOM0.4C39 PO; +TAMS-18 PO
[2025-04-14 23:51] VITALS: BP 144/85; TEMP 96.8; O2SAT 97
== END 2025-04-15 00:29 | disposition left against medical advice (07) ==
LOC: M ED 23:48
DX: Z53.21 Procedure and treatment not carried out due to patient leaving prior to being seen by health care provider (principal)